=== PATIENT | male | born 1980 | race Two or more races ===

== ENCOUNTER 2025-01-23 13:08 | Emergency (ER) | payer OTHER ==
[2025-01-23] MEDS: Ketorolac 30 MG/ML SDV IM ONE (14:04)
== END 2025-01-23 14:20 | disposition home or self-care (01) ==
LOC: MW.ED 13:08
DX: M54.42 Lumbago with sciatica, left side (principal); F17.210 Nicotine dependence, cigarettes, uncomplicated; Z79.899 Other long term (current) drug therapy
CPT/HCPCS: 96372; 99283; J1100; J1885; 99282